=== PATIENT | male | born 2000 | race Two or more races ===

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

== ENCOUNTER → 2021-12-29 | Outpatient (CLI) | payer OTHER ==
--- NOTE | 2021-12-29 15:32 | XR ---
EXAMINATION TYPE: XR wrist complete LT, XR hand complete LT DATE OF EXAM: 12/29/2021 3:21 PM INDICATION: Patient age:Male; 21 years old; Reason for study: S67.22XA, [id number] CRUSHING INJURY OF LEFT HAND, IN; H. COMPARISON: Left hand radiographs 10/14/2017. TECHNIQUE: The left hand was evaluated in PA, oblique, lateral projections. The left wrist was examin ed in PA, oblique, lateral projections. FINDINGS: No acute fracture, joint dislocation or joint effusion. The joints are preserved. No radiop aque foreign bodies. No significant soft tissue swelling. IMPRESSION: No acute osseous pathology.
== END | disposition home or self-care (01) ==
LOC: RADXRMAIN 15:02
PROVIDERS: ATTEND Emergency Medicine
DX: S67.22XA Crushing injury of left hand, initial encounter (principal); S63.502A Unspecified sprain of left wrist, initial encounter